=== PATIENT | female | born 1985 | race Caucasian/White ===

== ENCOUNTER 2019-03-29 11:05 | Emergency (ER) | payer BC ==
[2019-03-29 11:14] VITALS: RESP 18; TEMP 98.7
[2019-03-29] MEDS ORDERED: SODIUM CHLORIDE 0.9% 2,000 ML IV STA (12:05)
[2019-03-29 12:41] LABS: Basophils # (A) 0.2 k/uL (0-0.2); Basophils % (A) 2 %; Eosinophils # (A) 0.2 k/uL (0-0.7); Eosinophils % (A) 2 %; HCT 38.3 % (34.0-46.0); HGB 12.3 gm/dL (11.4-16.0); Lymphocytes # (A) 2.1 k/uL (1.0-4.8); Lymphocytes % (A) 19 %; MCH 29.2 pg (25.0-35.0); MCHC 32.2 g/dL (31.0-37.0); MCV 90.7 fL (80.0-100.0); Mean Platelet Volume 7.1; Monocytes # (A) 0.7 k/uL (0-1.0); Monocytes % (A) 6 %; Neutrophils # (A) 7.6 k/uL (1.3-7.7); Neutrophils % (A) 69 %; Platelet Count 330 k/uL (150-450); RBC 4.22 m/uL (3.80-5.40); RDW 12.5 % (11.5-15.5)
[2019-03-29 13:00] LABS: ALT 41 U/L (9-52); AST 36 U/L (14-36); African American GFR (CKD) >90 (>60 ml/min/1.73 sqM); Albumin 3.8 g/dL (3.5-5.0); Alkaline Phosphatase 42 U/L (38-126); Amylase 79 U/L (30-110); Anion Gap 9 mmol/L; Blood Urea Nitrogen 14 mg/dL (7-17); Carbon Dioxide 26 mmol/L (22-30); Chloride 103 mmol/L (98-107); Glucose 108 mg/dL (74-99); Potassium 4.6 mmol/L (3.5-5.1); Sodium 138 mmol/L (137-145); Total Bilirubin 0.3 mg/dL (0.2-1.3); Total Protein 6.7 g/dL (6.3-8.2)
--- NOTE | 2019-03-29 13:20 | ED ---
Nausea/Vomiting/Diarrhea HPI - General Chief complaint: Nausea/Vomiting/Diarrhea Stated complaint: Dehydrated-8 weeks Time Seen by Provider: 03/29/19 11:57 Source: patient, RN notes reviewed Mode of arrival: ambulatory Limitations: no limitations - History of Present Illness Initial comments: 34-year-old female presents emergency Department with chief complaint of nausea vomiting dehydration. Patient states she is [address] Salmon. Patient states that she suffered with increasing nausea vomiting morning sickness. Patient has tried taking [id number]-[id number] as directed including B6, Unisom, peppermint, lemon. Patient states that they gave her prescription for Zofran though she did not try yet. Patient states that she started some cramping today in which she contacted the office and recommended her come emergency from for IV hydration. Patient denies any vaginal bleeding or vaginal discharge. She has had an ultrasound which showed intrauterine . Patient has no complaints of dysuria hematuria denies any flank pain denies any diarrhea constipation. - Related Data Home Medications Medication Instructions Recorded Confirmed Pnv,Calcium 72/Iron/Folic Acid 1 tab PO HS 03/29/19 03/29/19 [ Plus Tablet] Allergies Allergy/AdvReac Type Severity Reaction Status Date / Time Penicillins Allergy Rash/Hives Verified 03/29/19 12:17 Review of Systems ROS Statement: Those systems with pertinent positive or pertinent negative responses have been documented in the HPI. ROS Other: All systems not noted in ROS Statement are negative. Past Medical History Past Medical History: No Reported History History of Any Multi-Drug Resistant Organisms: None Reported Past Surgical History: No Surgical Hx Reported Past Psychological History: No Psychological Hx Reported Smoking Status: Never smoker Past Alcohol Use History: None Reported Past Drug Use History: None Reported General Exam Limitations: no limitations General appearance: alert, in no apparent distress Head exam: Present: atraumatic, normocephalic, normal inspection Eye exam: Present: normal appearance, PERRL, EOMI. Absent: scleral icterus, conjunctival injection, periorbital swelling ENT exam: Present: mucous membranes dry, mucous membranes moist Neck exam: Present: normal inspection, full ROM. Absent: tenderness, meningismus, lymphadenopathy Respiratory exam: Present: normal lung sounds bilaterally. Absent: respiratory distress, wheezes, rales, rhonchi, stridor Cardiovascular Exam: Present: regular rate, normal rhythm, normal heart sounds. Absent: systolic murmur, diastolic murmur, rubs, gallop, clicks GI/Abdominal exam: Present: soft, normal bowel sounds. Absent: distended, tenderness, guarding, rebound, rigid Neurological exam: Present: alert, oriented X3 Skin exam: Present: warm, dry, intact, normal color. Absent: rash Course Vital Signs 03/29/19 11:11 Temperature 98.7 F Pulse Rate 91 Respiratory 18 Rate Blood Pressure 120/77 O2 Sat by Pulse 100 Oximetry - Reevaluation(s) Reevaluation #1: 03/29/19 13:55 Patient reevaluated and updated on results Medical Decision Making - Medical Decision Making 34 year old female presented for nausea vomiting . Patient was hydrated 2 L of fluid labs and urinalysis were obtained. Patient states that she feels improved after fluids and she does not require any antiemetics at this time. Patient advised to continue medications as directed by RESEARCH BIOLOGIST and return for any worsening symptoms. - Lab Data Result diagrams: 03/29/19 12:16 03/29/19 12:16 Lab Results 03/29/19 03/29/19 03/29/19 Range/Units 12:16 12:16 12:50 WBC 11.0 H (3.8-10.6) k/uL RBC 4.22 (3.80-5.40) m/uL Hgb 12.3 (11.4-16.0) gm/dL Hct 38.3 (34.0-46.0) % MCV 90.7 (80.0-100.0) fL MCH 29.2 (25.0-35.0) pg MCHC 32.2 (31.0-37.0) g/dL RDW 12.5 (11.5-15.5) % Plt Count 330 (150-450) k/uL Neutrophils % 69 % Lymphocytes % 19 % Monocytes % 6 % Eosinophils % 2 % Basophils % 2 % Neutrophils # 7.6 (1.3-7.7) k/uL Lymphocytes # 2.1 (1.0-4.8) k/uL Monocytes # 0.7 (0-1.0) k/uL Eosinophils # 0.2 (0-0.7) k/uL Basophils # 0.2 (0-0.2) k/uL Sodium 138 (137-145) mmol/L Potassium 4.6 (3.5-5.1) mmol/L Chloride 103 (98-107) mmol/L Carbon Dioxide 26 (22-30) mmol/L Anion Gap 9 mmol/L BUN 14 (7-17) mg/dL Creatinine 0.58 (0.52-1.04) mg/dL Est GFR (CKD-EPI)AfAm >90 (>60 ml/min/1.73 sqM) Est GFR (CKD-EPI)NonAf >90 (>60 ml/min/1.73 sqM) Glucose 108 H (74-99) mg/dL Calcium 9.0 (8.4-10.2) mg/dL Total Bilirubin 0.3 (0.2-1.3) mg/dL AST 36 (14-36) U/L ALT 41 (9-52) U/L Alkaline Phosphatase 42 (38-126) U/L Total Protein 6.7 (6.3-8.2) g/dL Albumin 3.8 (3.5-5.0) g/dL Amylase 79 (30-110) U/L Lipase 150 (23-300) U/L Urine Color Colorless Urine Appearance Clear (Clear) Urine pH 6.5 (5.0-8.0) Ur Specific [place] 1.004 (1.001-1.035) Urine Protein Negative (Negative) Urine Glucose (UA) Negative (Negative) Urine Ketones Negative (Negative) Urine Blood Negative (Negative) Urine Nitrite Negative (Negative) Urine Bilirubin Negative (Negative) Urine Urobilinogen <2.0 (<2.0) mg/dL Ur Leukocyte Esterase Moderate H (Negative) Urine WBC 2 (0-5) /hpf Ur Squamous Epith Cells 2 (0-4) /hpf Urine Bacteria Occasional H (None) /hpf Urine Mucus Rare H (None) /hpf Disposition Clinical Impression: Nausea/vomiting in Disposition: HOME SELF-CARE Condition: Stable Instructions (If sedation given, give patient instructions): Nausea and Vomiting in (ED) Additional Instructions: Please return to the Emergency Department if symptoms worsen or any other concerns. Is patient prescribed a controlled substance at d/c from ED?: No Referrals: Corin Salmon MD [STAFF PHYSICIAN] - 1-2 days Time of Disposition: 13:56
[2019-03-29 13:22] LABS: Appearance,Urine Clear (Clear); Bacteria,Urine Occasional /hpf; Bilirubin,Urine Negative (Negative); Blood,Urine Negative (Negative); Color,Urine Colorless; Glucose,Urine (UA) Negative (Negative); Ketones,Urine Negative (Negative); Leukocyte Esterase,Urine Moderate (Negative); Mucus,Urine Rare /hpf; Nitrite,Urine Negative (Negative); PH, Urine 6.5 (5.0-8.0); Protein,Urine Negative (Negative); Specific Gravity,Urine 1.004 (1.001-1.035); Squamous Epithelial Cell,Urine 2 /hpf (0-4); Urobilinogen,Urine <2.0 mg/dL (<2.0)
[2019-03-29 14:26] VITALS: BP 112/70; PULSE 72
== END 2019-03-29 14:26 | disposition home or self-care (01) ==
LOC: EC 11:05
DX: O21.9 Vomiting of pregnancy, unspecified (principal); Z3A.08 8 weeks gestation of pregnancy; Z88.0 Allergy status to penicillin; Z79.899 Other long term (current) drug therapy
CPT/HCPCS: 36415; 80053; 81001; 82150; 83690; 84702; 85025; 96360; 99283

== ENCOUNTER → 2019-04-19 | Outpatient (CLI) | payer BC ==
--- NOTE | 2019-04-19 18:08 | US ---
EXAMINATION TYPE: US thyroid st tissue head/neck DATE OF EXAM: 04/19/2019 COMPARISON: NONE CLINICAL HISTORY: E04.9 Thyroid Nodule. Thyroid nodules. GLAND SIZE: Right Lobe: 5.2 x 1.2 x 2.0 cm Overall Parenchyma: homogenous Left Lobe: 4.7 x 1.4 x 1.8 cm Overall Parenchyma: homogeneous Isthmus Thickness: .3 cm NODULES RIGHT: # of nodules measured on right: 0 LEFT: # of nodules measured on left: 0 ISTHMUS: # of nodules measured in the isthmus: 0 Bilateral neck scanned, no evidence of lymphadenopathy. Vascularity of the thyroid increased. IMPRESSION: Thyromegaly with no discrete thyroid nodule. Correlate for thyroiditis.
== END | disposition home or self-care (01) ==
LOC: RADUSMAIN 15:50
PROVIDERS: ATTEND Obstetrics & Gynecology
DX: E04.9 Nontoxic goiter, unspecified (principal)
CPT/HCPCS: 76536

== ENCOUNTER 2019-06-01 11:46 | Emergency (ER) | payer BC ==
[2019-06-01 11:49] VITALS: RESP 18; TEMP 98
[2019-06-01] MEDS ORDERED: SODIUM CHLORIDE 0.9% 1,000 ML IV STA (11:56)
[2019-06-01 12:11] LABS: Glucose,Whole Blood 55 mg/dL (75-99)
--- NOTE | 2019-06-01 12:14 | ED ---
General Adult HPI - General Chief complaint: Syncope Stated complaint: Syncope Time Seen by Provider: 06/01/19 11:56 Source: patient, EMS Mode of arrival: EMS Limitations: no limitations - History of Present Illness Initial comments: Dictation was produced using [email or web address] dictation software. please excuse any grammatical, word or spelling errors. Chief Complaint: 34-year-old female presents with presyncope. History of Present Illness: An is a 34-year-old female presents with presyncope. She was at target when she began feeling faint. Patient was slowly let down to the ground. Emesis, patient is brought to the emergency department. Patient is currently 17 weeks . Her NODULIZER is Dr. Turner. Patient had her initial ultrasound scan. She has had no issues with the this for. Patient stated vitamins. Since coming to the emergency department she's been feeling okay. Prior to the time she denies any palpitations. She did report feeling nauseous prior to onset of her symptoms. She reports having had oatmeal this morning. She reports that during this she's had severe nausea. Patient has any vaginal bleeding. The ROS documented in this emergency department record has been reviewed and confirmed by me. Those systems with pertinent positive or negative responses have been documented in the HPI. All other systems are other negative and/or noncontributory. PHYSICAL EXAM: General Impression: Alert and oriented x3, not in acute distress HEENT: Normocephalic atraumatic, extra-ocular movements intact, pupils equal and reactive to light bilaterally, mucous membranes moist. Cardiovascular: Heart regular rate and rhythm, S1&S2 audible, no murmurs, rubs or gallops Chest: Lungs clear to auscultation bilaterally, no rhonchi, no wheeze, no rales Abdomen: Bowel sounds present, abdomen soft, non-tender, non-distended, no organomegaly, appropriate abdominal exam given stated gestational age Musculoskeletal: Pulses present and equal in all extremities, no peripheral edema Motor: no focal deficits noted Neurological: CN II-XII grossly intact, no focal motor or sensory deficits noted Skin: Intact with no visualized rashes Psych: Normal affect and mood ED course: 34-year-old female presents with presyncope. Signs upon arrival are within acceptable limits. Blood glucose measures a 55. [facility]ony care bedside ultrasound was performed showing heart rate of 176. Laboratory evaluation obtained. CBC, metabolic panel is obtained metabolic panel shows glucose of 72. Patient was given oral glucose with improvement of blood sugars to the 110s. Patient was reevaluated with improvement of symptoms. His cast with patient that her symptoms are likely secondary to hypoglycemia. Patient is told to follow-up with her NODULIZER. She is told to consider hypoglycemia if she has recurrence of the symptoms. Patient feels well. She'll be discharged. Return premises discussed. EKG interpretation: Ventricular rate 73, normal sinus rhythm, SC interval 134, QRS 86, QTC 423. No SC prolongation, no QTC prolongation, no ST or T-wave changes noted. Overall, this EKG is unremarkable - Related Data Home Medications Medication Instructions Recorded Confirmed Pnv,Calcium 72/Iron/Folic Acid 1 tab PO HS 03/29/19 06/01/19 [ Plus Tablet] Allergies Allergy/AdvReac Type Severity Reaction Status Date / Time Penicillins Allergy Rash/Hives Verified 06/01/19 12:22 Review of Systems ROS Statement: Those systems with pertinent positive or pertinent negative responses have been documented in the HPI. ROS Other: All systems not noted in ROS Statement are negative. Past Medical History Past Medical History: No Reported History History of Any Multi-Drug Resistant Organisms: None Reported Past Surgical History: No Surgical Hx Reported Past Psychological History: No Psychological Hx Reported Smoking Status: Never smoker Past Alcohol Use History: None Reported Past Drug Use History: None Reported General Exam Limitations: no limitations Course Vital Signs 06/01/19 06/01/19 11:47 12:22 Temperature 98 F Pulse Rate 72 83 Respiratory 18 18 Rate Blood Pressure 116/74 114/65 O2 Sat by Pulse 100 99 Oximetry Medical Decision Making - Lab Data Result diagrams: 06/01/19 12:18 06/01/19 12:18 Lab Results 06/01/19 06/01/19 06/01/19 Range/Units 11:59 12:18 12:18 WBC 10.5 (3.8-10.6) k/uL RBC 3.77 L (3.80-5.40) m/uL Hgb 11.8 (11.4-16.0) gm/dL Hct 34.3 (34.0-46.0) % MCV 90.9 (80.0-100.0) fL MCH 31.2 (25.0-35.0) pg MCHC 34.3 (31.0-37.0) g/dL RDW 12.5 (11.5-15.5) % Plt Count 306 (150-450) k/uL Neutrophils % 73 % Lymphocytes % 19 % Monocytes % 5 % Eosinophils % 2 % Basophils % 0 % Neutrophils # 7.6 (1.3-7.7) k/uL Lymphocytes # 2.0 (1.0-4.8) k/uL Monocytes # 0.5 (0-1.0) k/uL Eosinophils # 0.2 (0-0.7) k/uL Basophils # 0.0 (0-0.2) k/uL Sodium 134 L (137-145) mmol/L Potassium 4.5 (3.5-5.1) mmol/L Chloride 106 (98-107) mmol/L Carbon Dioxide 22 (22-30) mmol/L Anion Gap 6 mmol/L BUN 10 (7-17) mg/dL Creatinine 0.59 (0.52-1.04) mg/dL Est GFR (CKD-EPI)AfAm >90 (>60 ml/min/1.73 sqM) Est GFR (CKD-EPI)NonAf >90 (>60 ml/min/1.73 sqM) Glucose 72 L (74-99) mg/dL POC Glucose (mg/dL) 55 L (75-99) mg/dL POC Glu Beaming Inspector Elizabeth Nguyen Calcium 8.8 (8.4-10.2) mg/dL Magnesium 1.9 (1.6-2.3) mg/dL 06/01/19 Range/Units 13:02 WBC (3.8-10.6) k/uL RBC (3.80-5.40) m/uL Hgb (11.4-16.0) gm/dL Hct (34.0-46.0) % MCV (80.0-100.0) fL MCH (25.0-35.0) pg MCHC (31.0-37.0) g/dL RDW (11.5-15.5) % Plt Count (150-450) k/uL Neutrophils % % Lymphocytes % % Monocytes % % Eosinophils % % Basophils % % Neutrophils # (1.3-7.7) k/uL Lymphocytes # (1.0-4.8) k/uL Monocytes # (0-1.0) k/uL Eosinophils # (0-0.7) k/uL Basophils # (0-0.2) k/uL Sodium (137-145) mmol/L Potassium (3.5-5.1) mmol/L Chloride (98-107) mmol/L Carbon Dioxide (22-30) mmol/L Anion Gap mmol/L BUN (7-17) mg/dL Creatinine (0.52-1.04) mg/dL Est GFR (CKD-EPI)AfAm (>60 ml/min/1.73 sqM) Est GFR (CKD-EPI)NonAf (>60 ml/min/1.73 sqM) Glucose (74-99) mg/dL POC Glucose (mg/dL) 110 H (75-99) mg/dL POC Glu Beaming Inspector ID Martha Vasquez Calcium (8.4-10.2) mg/dL Magnesium (1.6-2.3) mg/dL Disposition Clinical Impression: Hypoglycemia Disposition: HOME SELF-CARE Is patient prescribed a controlled substance at d/c from ED?: No Referrals: Corin Salmon MD [STAFF PHYSICIAN] - 1-2 days Time of Disposition: 13:21
[2019-06-01 12:23] VITALS: BP 114/65; PULSE 83
[2019-06-01 12:26] LABS: Basophils % (A) 0 %; Eosinophils # (A) 0.2 k/uL (0-0.7); Eosinophils % (A) 2 %; HCT 34.3 % (34.0-46.0); HGB 11.8 gm/dL (11.4-16.0); Lymphocytes % (A) 19 %; MCH 31.2 pg (25.0-35.0); MCHC 34.3 g/dL (31.0-37.0); MCV 90.9 fL (80.0-100.0); Mean Platelet Volume 5.8; Monocytes # (A) 0.5 k/uL (0-1.0); Monocytes % (A) 5 %; Neutrophils # (A) 7.6 k/uL (1.3-7.7); Neutrophils % (A) 73 %; Platelet Count 306 k/uL (150-450); RBC 3.77 m/uL (3.80-5.40); RDW 12.5 % (11.5-15.5); WBC 10.5 k/uL (3.8-10.6)
[2019-06-01 12:40] LABS: African American GFR (CKD) >90 (>60 ml/min/1.73 sqM); Anion Gap 6 mmol/L; Blood Urea Nitrogen 10 mg/dL (7-17); Calcium 8.8 mg/dL (8.4-10.2); Carbon Dioxide 22 mmol/L (22-30); Chloride 106 mmol/L (98-107); Glucose 72 mg/dL (74-99); Magnesium 1.9 mg/dL (1.6-2.3); Non-African American GFR(CKD) >90 (>60 ml/min/1.73 sqM); Potassium 4.5 mmol/L (3.5-5.1); Sodium 134 mmol/L (137-145)
[2019-06-01 13:15] LABS: Glucose,Whole Blood 110 mg/dL (75-99)
== END 2019-06-01 13:32 | disposition home or self-care (01) ==
LOC: EC 11:46
DX: O99.282 Endocrine, nutritional and metabolic diseases complicating pregnancy, second trimester (principal); E16.2 Hypoglycemia, unspecified; Z3A.17 17 weeks gestation of pregnancy; Z88.0 Allergy status to penicillin
CPT/HCPCS: 36415; 80048; 83735; 85025; 93005; 96360; 99284

== ENCOUNTER 2019-07-05 13:26 | Outpatient (CLI) | payer BC ==
[2019-07-05 14:04] VITALS: BP 128/75; PULSE 91; RESP 18; TEMP 97.3
--- NOTE | 2019-07-28 10:02 | P.MSEPDOC ---
Presenting Problems - Arrival Data Date of Arrival on Unit: 07/05/19 Time of Arrival on Unit: 13:30 Mode of Transport: Ambulatory - Complaint OB-Reason for Admission/Chief Complaint: Pain Comment: cramping, vaginal pressure- more intense when standing Medical History - Information : 1 Para: 0 Term: 0 : 0 Abortions: Spontaneous or Elective: 0 Number of Living Children: 0 - Gestational Age Gestational Age by MABEL (wks/days): 22 Weeks and 4 Days Review of Systems - Review of Systems Constitutional: No problems Breast: No problems ENT: No problems Cardiovascular: No problems Respiratory: No problems Gastrointestinal: No problems Genitourinary: No problems Musculoskeletal: No problems Neurological: No problems Skin: No problems Vital Signs - Temperature Temperature: 97.3 F Temperature Source: Temporal Artery Scan - Pulse Right Sitting Brachial Pulse Rate: 91 Pulse Assessment Method: Automatic Cuff - Respirations Respiratory Rate: 18 Oxygen Delivery Method: Room Air O2 Sat by Pulse Oximetry: 100 - Blood Pressure Right Arm Sitting Blood Pressure: 128/75 Blood Pressure Mean: 92 Blood Pressure Source: Automatic Cuff Medical Screen Scoring (Pre) - Cervical Exam Dilation: 0 cm = 0 - Uterine Contractions Frequency: N/A Duration: N/A Intensity: N/A - Maternal Vital Signs Maternal Temperature: N/A Maternal Blood Pressure: N/A Signs of Preeclampsia: N/A Maternal Respirations: N/A - Maternal Trauma Maternal Trauma: N/A - Assessment - Baby A Baseline FHR: 140 Heart Rate - NICHD Category: Category I (Normal) = 0 Position: N/A Station: N/A - Total Score - Baby A Total Score - Baby A: 0 - Total Score - Baby B Total Score - Baby B: 0 - Total Score - Baby C Total Score - Baby C: 0 - Level of Risk - Baby A Level of Risk - Baby A: Low (0-5) - Level of Risk - Baby B Level of Risk - Baby B: Low (0-5) - Level of Risk - Baby C Level of Risk - Baby C: Low (0-5) - Pain Assessment Pain Location and Character: Abdomen Pain Scale Used: Numeric (1 - 10) Pain Intensity: 1 Pain Management Goal: 0 Pain Description: Cramping Pain Radiation Location: none Pain Frequency: Occasional Pain Duration: 4 Pain Duration Units: Hours Pain Behavior: None Exhibited Effects of Pain: none Pain Aggravating Factors: Activity Physician Notification (Pre) - Physician Notified Physician Notified Date: 07/05/19 Physician Notified Time: 13:55 New Order Received: Yes - Notification Comment Comment: Dc home. cervix closed/thick/high. Suggested maternal support belt. Follow up with Dr Mars within one week. Disposition - Disposition OB Disposition: Discharge to home Discharge Date: 07/05/19 Discharge Time: 14:00 I agree with the RN Medical Screening Exam: Yes Risk & Benefit of care provided described in d/c instruction: Yes Diagnosis: 22 WEEKS GESTATION OF
== END 2019-07-05 14:00 | disposition home or self-care (01) ==
LOC: FBPOP 13:26
PROVIDERS: ATTEND Obstetrics & Gynecology
DX: O26.892 Other specified pregnancy related conditions, second trimester (principal); Z3A.22 22 weeks gestation of pregnancy
CPT/HCPCS: 99213

== ENCOUNTER 2019-11-03 13:38 | Inpatient (IN) | payer BC ==
[2019-11-03] MEDS: LACTATED RINGERS 1,000 ML IV SCH ×3 (14:26→21:57)
--- NOTE | 2019-11-03 15:32 | US ---
EXAMINATION TYPE: US OB limited DATE OF EXAM: 11/03/2019 COMPARISON: NONE CLINICAL HISTORY: non reassuring heart tones. EXAM PERFORMED: Transabdominal (TA) GESTATIONAL AGE / DATING Physician Established: (38 weeks/6 days) EDC: 11/04/19 No growth performed on today?s study per ordering physician SURVEY BONNIE: 5.75 cm Oligohydramnios. (Tech?if abnormal transabdominally?image transvaginally to substantiate abnormality.) HEART RATE: 143 bpm RHYTHM: Normal IMPRESSION: 1. Oligohydramnios. 2. BONNIE 5.75 cm. 3. Cardiac activity 143 bpm observed during the study.
[2019-11-03] MEDS ORDERED: BUTORPHANOL 1 MG/ML 1 ML VIAL IV PRN (15:40)
[2019-11-03] MEDS ORDERED: DINOPROSTONE 10 MG INSERT.ER VAGINAL ONE (15:40)
[2019-11-03] MEDS ORDERED: TERBUTALINE 1 MG/ML VIAL SQ PRN (15:42)
[2019-11-03] MEDS ORDERED: OXYTOCIN 10 UNIT/ML 1 ML VIAL IM PRN (15:42)
[2019-11-03] MEDS ORDERED: CARBOPROST TROMETHAMINE 250 MCG/ML 1 ML AMP IM PRN (15:42)
[2019-11-03] MEDS ORDERED: METHYLERGONOVINE 0.2 MG/ML 1 ML AMP IM PRN (15:42)
[2019-11-03] MEDS ORDERED: LIDOCAINE 0.5% (PF) 5 MG/ML (50 ML SDV) SQ PRN (15:42)
[2019-11-03 16:22] LABS: Basophils % (A) 0 %; Eosinophils # (A) 0.1 k/uL (0-0.7); Eosinophils % (A) 1 %; HCT 35.8 % (34.0-46.0); HGB 11.3 gm/dL (11.4-16.0); Lymphocytes # (A) 1.9 k/uL (1.0-4.8); Lymphocytes % (A) 18 %; MCH 29.1 pg (25.0-35.0); MCHC 31.7 g/dL (31.0-37.0); MCV 91.9 fL (80.0-100.0); Mean Platelet Volume 11.3; Monocytes # (A) 0.7 k/uL (0-1.0); Monocytes % (A) 7 %; Neutrophils # (A) 7.5 k/uL (1.3-7.7); Neutrophils % (A) 73 %; Platelet Count 257 k/uL (150-450); RBC 3.89 m/uL (3.80-5.40); RDW 15.2 % (11.5-15.5); WBC 10.3 k/uL (3.8-10.6)
--- NOTE | 2019-11-03 17:33 | P.HPOB ---
History of Present Illness H&P Date: 11/03/19 Chief Complaint: Possible labor This is a 34-year-old 1 para 0 woman with an estimated due date of 11/04/2019 based on LMP consistent with second trimester ultrasound. She presents to labor and delivery triage complaining of irregular contractions for several hours. She was not in active labor she had a nonreactive NST with minimal to absent variability noted. She had no repetitive decelerations. IV fluid hydration did improve the variability somewhat however bedside ultrasound revealed an BONNIE of only 5.3 cm. She was therefore admitted for cervical ripenin g prior to induction of labor for oligohydramnios at term. Her cervix is unfavorable dilated to 1.5 cm, 50% effaced, vertex in the -3 station. Her has been essentially unremarkable. She did have some syncopal episodes in the second trimester however these did resolve near term. Laboratory data: Group B strep negative, blood type O+, antibody screen negative, rubella immune, VDRL nonreactive, hepatitis B surface antigen negative, gonorrhea and clinic cultures negative, HIV negative, glucose tolerance testing within normal limits. Review of Systems All systems: negative Past Medical History Past Medical History: No Reported History History of Any Multi-Drug Resistant Organisms: None Reported Past Surgical History: No Surgical Hx Reported Smoking Status: Never smoker Medications and Allergies Home Medications Medication Instructions Recorded Confirmed Type Pnv,Calcium 72/Iron/Folic Acid 1 tab PO HS 03/29/19 11/03/19 History [ Plus Tablet] Allergies Allergy/AdvReac Type Severity Reaction Status Date / Time Penicillins Allergy Rash/Hives Verified 11/03/19 14:22 Exam Intake and Output 11/03/19 11/03/19 11/03/19 06:59 14:59 22:59 Other: Weight 75.296 kg This is a pleasant, comfortable appearing female who is visibly gravid. HEENT exam is unremarkable. Her breathing is unlabored and her heart is a regular rate and rhythm. The abdomen is gravid, soft and nontender with an estimated weight of approximately 7 pounds. On pelvic examination the cervix is 1.5 cm dilated, 50% effaced and the vertex is in the -3 station. Cervidil is placed in the posterior fourchette. heart tones are currently category 2 with occasional mild variable heart rate decelerations. No late appearing decelerations. Moderate variability. She is irregularly jose every 5-10 minutes. Results Result Diagrams: 11/03/19 14:26 Abnormal Lab Results - Last 24 Hours (Table) 11/03/19 Range/Units 14:26 Hgb 11.3 L (11.4-16.0) gm/dL Assessment and Plan (1) Term Current Visit: Yes Status: Acute Code(s): Z34.90 - ENCNTR FOR SUPRVSN OF NORMAL , UNSP, UNSP TRIMESTER SNOMED Code(s): 91343268 (2) Oligohydramnios Current Visit: Yes Status: Acute Code(s): O41.00X0 - OLIGOHYDRAMNIOS, UNSP TRIMESTER, NOT APPLICABLE OR UNSP SNOMED Code(s): 17671861 (3) AMA (advanced maternal age) primigravida 35+ Current Visit: Yes Status: Acute Code(s): O09.519 - SUPERVISION OF ELDERLY PRIMIGRAVIDA, UNSPECIFIED TRIMESTER SNOMED Code(s): 52469259 Plan: This is a 34-year-old 1 para 0 woman admitted at 39-6/7 weeks' gestation for cervical ripening and induction of labor secondary to oligohydramnios. She and her are counseled extensively regarding the situation. Specifically she is counseled that with contractions if there is evidence of intolerance of labor we Would discontinue the attempt at induction and proceed to primary low transverse section. heart tones are currently overall reassuring although she does have occasional mild variable heart rate decelerations not related to contractions. Cervidil is placed and if all goes well Pitocin induction of labor with artificial rupture of membranes in the morning or with onset of spontaneous labor. All questions were answered and the patient and her agreed with the plan. She is group B strep negative and Rh+.
[2019-11-03] MEDS ORDERED: fentaNYL (PF) 50 MCG/ML 5 ML AMP ONE (21:35)
[2019-11-03] MEDS ORDERED: ROPIVACAINE 5MG/ML 20ML VIAL ONE (21:35)
[2019-11-03] MEDS ORDERED: SODIUM CHLORIDE 0.9% 100 ML BAG ONE (21:35)
[2019-11-03] MEDS ORDERED: ROPIVACAINE 100 MG, fentaNYL (PF) 200 MCG in SODIUM CHLORIDE 0.9% 76 ML EPIDURAL ONE (21:58)
[2019-11-03] MEDS ORDERED: CITRIC ACID-SODIUM CITRATE 15 ML CUP PO ONE (23:18)
[2019-11-03] MEDS ORDERED: ONDANSETRON 4 MG/2 ML VIAL ONE (23:27)
[2019-11-03] MEDS ORDERED: PROPOFOL 10 MG/ML 20 ML VIAL IV ONE (23:27)
[2019-11-03] MEDS ORDERED: KETOROLAC 30 MG/ML 1 ML VIAL ONE (23:27)
[2019-11-03] MEDS ORDERED: NALBUPHINE 10 MG/ML (1 ML AMP) ONE (23:27)
[2019-11-03] MEDS ORDERED: OXYTOCIN 10 UNIT/ML 1 ML VIAL ONE (23:27)
[2019-11-03] MEDS ORDERED: SUCCINYLCHOLINE CHLORIDE 100 MG/5 ML SYR IV ONE (23:27)
[2019-11-03] MEDS ORDERED: CELLULOSE,OXIDIZED 1 EACH EACH MISCELLANE ONE (23:50)
[2019-11-04] MEDS ORDERED: diphenhydrAMINE 50 MG CAP PO PRN (00:26)
[2019-11-04] MEDS ORDERED: SIMETHICONE 80 MG CHEWABLE PO PRN (00:26)
[2019-11-04] MEDS ORDERED: ONDANSETRON 4 MG/2 ML VIAL IVP PRN (00:26)
[2019-11-04] MEDS ORDERED: NALOXONE 0.4 MG/ML 1 ML VIAL IV PRN (00:26)
[2019-11-04] MEDS ORDERED: HYDROcodone/APAP 5-325MG 1 EACH TAB PO PRN (00:26)
[2019-11-04] MEDS ORDERED: ZOLPIDEM 5 MG TAB PO PRN (00:26)
[2019-11-04] MEDS ORDERED: METOCLOPRAMIDE 5 MG/ML 2 ML VIAL IVP PRN (00:26)
[2019-11-04] MEDS ORDERED: diphenhydrAMINE 25 MG CAP PO PRN (00:26)
[2019-11-04] MEDS ORDERED: diphenhydrAMINE 50 MG/ML 1 ML VIAL IVP PRN ×2 (00:26)
--- NOTE | 2019-11-04 00:26 | P.OP ---
Date of Procedure: 11/04/19 Preoperative Diagnosis: Intrauterine at 39-6/7 weeks' gestation Oligohydramnios Meconium-stained fluid Nonreassuring heart tones in the second stage Postoperative Diagnosis: Same plus nuchal cord 2 Procedure(s) Performed: Primary low transverse section Anesthesia: IRINA Surgeon: Corin Salmon [employer] Worker #1: Juana Smith Estimated Blood Loss (ml): 600 IV fluids (ml): 900 Urine output (ml): 200 Pathology: other (Placenta) Condition: stable Disposition: floor Indications for Procedure: This is a 34-year-old 1 para 0 woman who presented at 39-6/7 weeks' gestation with possible early labor. She had minimal cervical dilation however evaluation in labor and delivery triage she had nonreactive NST. She was given IV fluid rehydration which did make the tracing reactive however bedside ultrasound revealed of amniotic fluid index of 5 cm. Her cervix was 1 cm dilated and she was admitted for cervical ripening secondary to oligohydramnios at term. This Cervidil was placed at approximately 5 PM. By approximately 8 PM she was very uncomfortable and was regularly jose. Her cervix was 2+ centimeters dilated. The Cervidil was removed. She progressed to 4 cm dilated at which time artificial rupture of membranes was undertaken and thick meconium- stained fluid was noted. She had category 2 heart tones throughout this time with periods of minimal variability and occasional variable heart rate decelerations. She did progress rapidly through the first stage of labor and at 8 cm dilated received an epidural anesthetic. She reached complete cervical dilation however with maternal effort had deep variable heart rate decelerations into the 60 bpm. The station was quite high and assessment was the second stage of labor would be longer then the intolerance. The patient and her were counseled regarding concerns for meconium-stained fluid, heart rate decelerations remote from delivery and recommendation to proceed to section was made. Consent was obtained. Operative Findings: Female in the occiput posterior position with nuchal cord 2. Thick meconium-stained fluid. Intact, three-vessel cord placenta. Apgars of 6 at 1 minute and 8 at 5 minutes weight 7 lbs. 2 oz., 3240 g. Description of Procedure: The patient's epidural was bolused and she was transported to the operating room. In the operating room heart tones were initially dopplered at 120 bpm however she had a deceleration to the 80 bpm. Her anesthetic and un fortunately was not adequate therefore general anesthetic was administered after she was position prepped and draped. When she was intubated a low transverse skin incision was made and carried down sharply to the underlying fascia. The fascia was incised in the midline and extended bilaterally with the Potter scissors. The rectus muscles were bluntly in the midline and the peritoneum was entered bluntly. Bladder blade was placed and a low transverse uterine incision was made. This was extended bilaterally bluntly. Copious thick meconium-stained fluid was noted. The 's vertex was delivered from the incision from the occiput posterior position and a nuchal cord 2 was reduced. Nose and mouth were bulb suctioned and the rest the infant was delivered from the field. The cord was clamped and cut and the was taken rapidly to the warmer. Apgars were 6 at 1 minute and 8 at 5 minutes. An intact, three-vessel cord placenta was removed from the uterus and the uterus was exteriorized. The uterus was cleared of all clot and debris. Of note there were some omental adhesions to the fundal area of the uterus. The uterine incision did extend to the left and was delineated with Smith clamps. The uterine incision was closed in a running locked fashion with 0 Vicryl suture followed by second imbricating layer of the same. Additional [id number] suture was placed in the midline for hemostasis. Urine was clear at this time. The Bovie electrocautery was utilized to obtain hemostasis in areas of the anterior fundus of the uterus where adhesions were disrupted. The uterus was then returned to the abdomen. Gutters were cleared of all clot and debris and the uterine incision was reinspected and noted to be hemostatic. Bladder appears intact and urine is clear. The fascial edges, rectus muscles and peritoneal edges were inspected and noted to be hemostatic. The peritoneal peritoneum is reapproximated in the midline with 0 Vicryl suture. The fascia was then closed in a running fashion with 0 Vicryl suture on in halves. The subcu testicular tissue was copiously suction irrigated and Bovie electrocautery was utilized were necessary for hemostasis. The subcu was reapproximated with 3-0 chromic suture and the skin was closed with 4-0 Vicryl suture. All counts reported to me as correct by the operating room staff. The patient was awoken from anesthetic without incident and was transported to recovery area in stable condition.
[2019-11-04] MEDS ORDERED: OXYTOCIN 20 UNITS/1000 ML NS 1,000 ML IV SCH (00:30)
[2019-11-04] MEDS: KETOROLAC 30 MG/ML 1 ML VIAL IVP PRN ×3 (09:26→22:20)
--- NOTE | 2019-11-04 10:18 | P.PNOBGPC ---
Subjective - Subjective Principal diagnosis: Postop day 1/2 Interval history: Findings of labor and section reviewed with the patient and her in detail and all questions are answered. She is complaining of some mild to moderate pain, improved with Toradol at this time. She is recently had the catheter removed and has not yet been up to void. She denies nausea or vomiting and did tolerate some breakfast. [place]: doing well, nursing well Objective - Vital Signs Latest vital signs: Vital Signs Temp Pulse Resp BP Pulse Ox 11/04/19 02:31 90 16 130/77 11/04/19 02:01 98.1 F 85 16 131/70 95 11/04/19 01:31 98 16 142/69 11/04/19 01:16 89 16 133/67 11/04/19 01:01 100 16 137/67 95 11/04/19 00:46 97 16 142/92 97 11/04/19 00:31 98.1 F 117 H 16 134/88 98 11/03/19 17:25 98.1 F 102 H 16 125/81 11/03/19 13:50 98.1 F 102 H 16 125/81 Intake and Output 11/03/19 11/04/19 11/04/19 22:59 06:59 14:59 Output Total 1200 Balance -1200 Output: Urine 1200 Other: Voiding Method Indwelling Catheter # Voids 1 Weight 75.296 kg - Exam Extremities: Present: normal, edema. Absent: tenderness Abdomen: Present: normal appearance, soft, tenderness Incision: Present: normal, dry, intact, dressed Uterus: Present: normal, firm - Labs Labs: Abnormal Lab Results - Last 24 Hours (Table) 11/03/19 Range/Units 14:26 Hgb 11.3 L (11.4-16.0) gm/dL Assessment and Plan (1) Term Current Visit: Yes Status: Acute Code(s): Z34.90 - ENCNTR FOR SUPRVSN OF NORMAL , UNSP, UNSP TRIMESTER SNOMED Code(s): 30650433 (2) Oligohydramnios Current Visit: Yes Status: Acute Code(s): O41.00X0 - OLIGOHYDRAMNIOS, UNSP TRIMESTER, NOT APPLICABLE OR UNSP SNOMED Code(s): 80430107 (3) AMA (advanced maternal age) primigravida 35+ Current Visit: Yes Status: Acute Code(s): O09.519 - SUPERVISION OF ELDERLY PRIMIGRAVIDA, UNSPECIFIED TRIMESTER SNOMED Code(s): 11945666 (4) Meconium in amniotic fluid Current Visit: Yes Status: Acute Code(s): P96.83 - MECONIUM STAINING SNOMED Code(s): 4760848 (5) Nuchal cord Current Visit: Yes Status: Acute Code(s): O69.81X0 - LABOR AND DEL COMP BY CORD AROUND NECK, W/O COMPRSN, UNSP SNOMED Code(s): 413768362 (6) Non-reassuring heart rate or rhythm affecting management of fetus Current Visit: Yes Status: Acute Code(s): PIG2002 - SNOMED Code(s): 088284889 (7) S/P section Current Visit: Yes Status: Acute Code(s): Z98.891 - HISTORY OF UTERINE SCAR FROM PREVIOUS SURGERY SNOMED Code(s): 614282068 Plan: Postop day 1/2 status post primary low transverse section for nonreassuring heart tones, meconium in the second stage of labor. Operative events reviewed in detail. Patient is recovering well in the immediate postop timeframe. Anticipated recovery course is reviewed. All questions are answered.
[2019-11-04] MEDS: SENNOSIDES-DOCUSATE SODIUM 1 EACH TAB PO SCH ×2 (19:58→20:54)
[2019-11-04] MEDS: LACTATED RINGERS 1,000 ML IV SCH ×2 (20:54→20:55)
[2019-11-04] MEDS: OXYTOCIN 30 UNITS/500 ML NS 30 UNIT in SALINE 1 500ML.BAG IV SCH (20:55)
[2019-11-05] MEDS: ACETAMINOPHEN TAB 325 MG TAB PO PRN ×3 (01:15→19:30)
[2019-11-05] MEDS: IBUPROFEN 600 MG TAB PO PRN ×2 (04:06→13:28)
[2019-11-05 05:49] LABS: Basophils % (A) 0 %; Eosinophils # (A) 0.1 k/uL (0-0.7); Eosinophils % (A) 0 %; HCT 31.7 % (34.0-46.0); HGB 10.3 gm/dL (11.4-16.0); Lymphocytes # (A) 2.4 k/uL (1.0-4.8); Lymphocytes % (A) 14 %; MCH 30.2 pg (25.0-35.0); MCHC 32.4 g/dL (31.0-37.0); MCV 93.4 fL (80.0-100.0); Mean Platelet Volume 9.1; Monocytes # (A) 0.6 k/uL (0-1.0); Monocytes % (A) 4 %; Neutrophils # (A) 13.7 k/uL (1.3-7.7); Neutrophils % (A) 81 %; Platelet Count 229 k/uL (150-450); RDW 15.5 % (11.5-15.5)
[2019-11-05] MEDS: SENNOSIDES-DOCUSATE SODIUM 1 EACH TAB PO SCH ×2 (08:21→21:27)
--- NOTE | 2019-11-05 10:50 | P.DS ---
Providers Date of admission: 11/03/19 15:42 Expected date of discharge: 11/05/19 Attending physician: Corin Salmon Primary care physician: Stated None - Discharge Diagnosis(es) (1) Term Current Visit: Yes Status: Acute (2) Oligohydramnios Current Visit: Yes Status: Acute (3) AMA (advanced maternal age) primigravida 35+ Current Visit: Yes Status: Acute (4) Meconium in amniotic fluid Current Visit: Yes Status: Acute (5) Nuchal cord Current Visit: Yes Status: Acute (6) Non-reassuring heart rate or rhythm affecting management of fetus Current Visit: Yes Status: Acute (7) S/P section Current Visit: Yes Status: Acute Hospital Course: This is a 34-year-old 1 now para 1 woman who was admitted at 39-6/7 wee ks' gestation for induction of labor secondary to findings of oligohydramnios. She did originally presented to labor and delivery triage for evaluation of possible early labor. She had minimal cervical change during triage observation she was noted to have nonreactive NST. This did improve with fluid rehydration however bedside ultrasound revealed amniotic fluid index of 5 cm. Secondary to concerns for well-being at term patient was admitted. Her cervix was unfavorable therefore Cervidil was placed. Approximately 2-3 hours after placement of the Cervidil she was in active labor. The Cervidil was removed and she was 4 cm dilated. Artificial rupture of membranes was undertaken and thick meconium- stained fluid was noted. Her labor did then rapidly progressed spontaneously and she received an epidural anesthetic. She did progress to complete cervical dilation however with maternal effort in the second stage of labor she had deep heart rate decelerations. The infant's vertex was high indicating possible prolonged second stage of labor that the was unlikely to tolerate., patient and her were counseled on the regarding section. She was taken to the operating room. Unfortunately her epidural anesthetic was in adequate therefore general anesthetic was administered. Findings at the time of surgery were significant for a female infant in the occiput posterior position with a tight nuchal cord 2 and thick meconium- stained fluid. Apgars were 6 at 1 minute and 8 at 5 minutes. Please see the operative report for details. The patient's postoperative course was unremarkable. By the morning of postoperative day #1 she was ambulating and voiding without difficulty, tolerating a general diet and her pain was well- controlled with oral pain medications. Her incision appeared well healing. By postoperative day #2 she continued to do well. Vital signs were stable, incision well healing, nursing well. She was therefore discharged home with routine instructions for postoperative care and follow-up. Patient Condition at Discharge: Good Plan - Discharge Summary New Discharge Prescriptions: No Action Pnv,Calcium 72/Iron/Folic Acid [ Plus Tablet] 1 tab PO HS Discharge Medication List Pnv,Calcium 72/Iron/Folic Acid [ Plus Tablet] 1 tab PO HS 03/29/19 [History] Follow up Appointment(s)/Referral(s): Corin Salmon MD [STAFF PHYSICIAN] - 2 Weeks Activity/Diet/Wound Care/Special Instructions: Follow-up in 2 weeks after surgery in the office. Call the office with any concerning signs or symptoms including fever greater than 101, severe abdominal pain, heavy vaginal bleeding, signs of wound infection, increased swelling or redness of the lower extremities, signs of depression. No driving for 2 weeks after surgery. No heavy lifting or vigorous activity until reevaluated in the office. No intercourse for 6 weeks after delivery. May use [id number] ibuprofen and or Tylenol Extra Strength as instructed for pain. Discharge Disposition: HOME SELF-CARE
[2019-11-06] MEDS: IBUPROFEN 600 MG TAB PO PRN (00:33)
[2019-11-06] MEDS: ACETAMINOPHEN TAB 325 MG TAB PO PRN (06:15)
[2019-11-06 07:58] VITALS: BP 125/77; PULSE 87; RESP 16; TEMP 98.7
[2019-11-06] MEDS: SENNOSIDES-DOCUSATE SODIUM 1 EACH TAB PO SCH (09:35)
== END 2019-11-06 09:41 | disposition home or self-care (01) | DRG 788 ==
LOC: FBPOP 13:38 → 4FBP 15:42
PROVIDERS: ADMIT Obstetrics & Gynecology; ATTEND Obstetrics & Gynecology
PROC: 3E033VJ Introduction of Other Hormone into Peripheral Vein, Percutaneous Approach (ICD-10-PCS; 2019-11-03)
PROC: 10907ZC Drainage of Amniotic Fluid, Therapeutic from Products of Conception, Via Natural or Artificial Opening (ICD-10-PCS; 2019-11-03)
PROC: 3E0P7VZ Introduction of Hormone into Female Reproductive, Via Natural or Artificial Opening (ICD-10-PCS; 2019-11-03)
PROC: 00HU33Z Insertion of Infusion Device into Spinal Canal, Percutaneous Approach (ICD-10-PCS; 2019-11-03)
PROC: 3E0R3BZ Introduction of Anesthetic Agent into Spinal Canal, Percutaneous Approach (ICD-10-PCS; 2019-11-03)
PROC: 10D00Z1 Extraction of Products of Conception, Low, Open Approach (ICD-10-PCS; principal; 2019-11-04)
DX: O41.03X0 Oligohydramnios, third trimester, not applicable or unspecified (principal); O69.1XX0 Labor and delivery complicated by cord around neck, with compression, not applicable or unspecified; O77.0 Labor and delivery complicated by meconium in amniotic fluid; O76 Abnormality in fetal heart rate and rhythm complicating labor and delivery; Z3A.39 39 weeks gestation of pregnancy; Z37.0 Single live birth; Z79.899 Other long term (current) drug therapy; Z88.0 Allergy status to penicillin
CPT/HCPCS: 59025; 76815; 85025; 86850; 86900; 86901; 88307; 99213

== ENCOUNTER 2021-03-03 17:18 | Emergency (ER) | payer BC ==
[2021-03-03 17:34] VITALS: RESP 18
[2021-03-03] MEDS ORDERED: SODIUM CHLORIDE 0.9% 1,000 ML IV STA (18:57)
[2021-03-03] MEDS ORDERED: ONDANSETRON 4 MG/2 ML VIAL IVP STA (18:57)
[2021-03-03 19:21] LABS: Basophils % (A) 0 %; Eosinophils # (A) 0.2 k/uL (0-0.7); Eosinophils % (A) 2 %; HGB 13.6 gm/dL (11.4-16.0); Lymphocytes # (A) 2.2 k/uL (1.0-4.8); Lymphocytes % (A) 22 %; MCV 94.1 fL (80.0-100.0); Mean Platelet Volume 8.1; Monocytes # (A) 0.5 k/uL (0-1.0); Monocytes % (A) 5 %; Neutrophils % (A) 70 %; Platelet Count 353 k/uL (150-450); RBC 4.25 m/uL (3.80-5.40); RDW 13.8 % (11.5-15.5); WBC 10.1 k/uL (3.8-10.6)
[2021-03-03 19:24] LABS: Appearance,Urine Clear (Clear); Bacteria,Urine Rare /hpf; Bilirubin,Urine Negative (Negative); Blood,Urine Negative (Negative); Color,Urine Yellow; Glucose,Urine (UA) Negative (Negative); Ketones,Urine Trace (Negative); Leukocyte Esterase,Urine Trace (Negative); Mucus,Urine Rare /hpf; Nitrite,Urine Negative (Negative); PH, Urine 5.5 (5.0-8.0); Protein,Urine Negative (Negative); RBC,Urine 1 /hpf (0-5); Specific Gravity,Urine 1.024 (1.001-1.035); Squamous Epithelial Cell,Urine 1 /hpf (0-4); Urobilinogen,Urine <2.0 mg/dL (<2.0); WBC,Urine 3 /hpf (0-5)
[2021-03-03 19:35] LABS: ALT 11 U/L (4-34); AST 23 U/L (14-36); African American GFR (CKD) >90 (>60 ml/min/1.73 sqM); Albumin 3.7 g/dL (3.5-5.0); Alkaline Phosphatase 59 U/L (38-126); Anion Gap 11 mmol/L; Blood Urea Nitrogen 9 mg/dL (7-17); Calcium 9.1 mg/dL (8.4-10.2); Carbon Dioxide 21 mmol/L (22-30); Chloride 103 mmol/L (98-107); Glucose 114 mg/dL (74-99); Non-African American GFR(CKD) >90 (>60 ml/min/1.73 sqM); Potassium 3.7 mmol/L (3.5-5.1); Sodium 135 mmol/L (137-145); Total Bilirubin <0.1 mg/dL (0.2-1.3); Total Protein 6.6 g/dL (6.3-8.2)
--- NOTE | 2021-03-03 20:19 | US ---
EXAMINATION TYPE: Transabdominal DATE OF EXAM: 03/03/2021 7:47 PM COMPARISON: NONE for this . Prior US. CLINICAL HISTORY: pain/cramping. Pain. Hx 1 . . EXAM PERFORMED: Transabdominal (TA) OB ultrasound. EXAM MEASUREMENTS: GESTATIONAL AGE / DATING Physician Established: (13 weeks/6 days) EDC: 09/02/2021 Dates by LMP: (13 weeks/6 days) EDC: 09/02/2021 Dates by First Scan: This is first scan Dates by Current Scan for: (14 weeks/0 days) EDC: 09/01/2021 MATERNAL ANATOMY Uterus: 12.2 x 11.4 x 8.0 cm. Anteverted. Right Ovary: 3.1 x 1.6 x 1.7 cm. Left Ovary: 2.5 x 1.8 x 1.1 cm. Post CDS / Adnexa: Normal. Presence of free fluid: None seen. Presence of corpus luteal cyst: Not seen. Presence of subchorionic bleed: Not seen. GESTATION / SURVEY CRL: 7.99 cm. (14 weeks/0 days) Yolk Sac (normal less than 6mm): Not seen. Heart Rate: 163 bpm Rhythm: Normal IUP: Viable IUP Nuchal Translucency 10-14wks (normal less than 3mm): Not well seen. Age Appropriate Anatomy Cord Insertion: Visualized, image of limited visibility. Limbs: Visualized Calvarium: Visualized Date of LMP: 11/26/2020 Beta HcG (if available): Not available. IMPRESSION: Single live intrauterine with heart rate of 163 bpm. Estimated gestational age 14 wee ks 0 days, with estimated due date of 09/01/2021.
--- NOTE | 2021-03-03 20:36 | ED ---
Nausea/Vomiting/Diarrhea HPI - General Chief complaint: Nausea/Vomiting/Diarrhea Stated complaint: 13 Weeks Preg, Possibly Dehydrated Time Seen by Provider: 03/03/21 18:43 Source: patient, RN notes reviewed Mode of arrival: ambulatory Limitations: no limitations - History of Present Illness Initial comments: A she is a 35-year-old female that presents to the emergency department complaining of nausea vomiting and some abdominal cramping. She notes that she is approximate 14 weeks . She notes that she has not had this happen in the past with previous pregnancies. She notes that she call her SECURITY STRATEGIST who told her to come emergency room for evaluation. She notes that she does have hyperemesis with all of her pregnancies and that's not abnormal for her. She denied any severe sharp shooting pain she notes that her lower abdominal crampin g with mild today and it was last night. She denied any chest pain shortness of breath headache diarrhea constipation fever fatigue chills. - Related Data Home Medications Medication Instructions Recorded Confirmed Pnv,Calcium 72/Iron/Folic Acid 1 tab PO HS 03/29/19 03/03/21 [ Plus Tablet] Aspirin EC [Ecotrin Low Dose] 81 mg PO HS 03/03/21 03/03/21 Ondansetron HCl [Zofran] 4 mg PO Q8H PRN 03/03/21 03/03/21 Phenadoz 25mg Suppository 12.5 mg RECTAL Q4H PRN 03/03/21 03/03/21 Allergies Allergy/AdvReac Type Severity Reaction Status Date / Time Penicillins Allergy Rash/Hives Verified 03/03/21 19:10 Review of Systems ROS Statement: Those systems with pertinent positive or pertinent negative responses have been documented in the HPI. ROS Other: All systems not noted in ROS Statement are negative. Past Medical History Past Medical History: No Reported History Additional Past Medical History / Comment(s): psoriasis and psoriatic arthritis History of Any Multi-Drug Resistant Organisms: None Reported Past Surgical History: Section Past Anesthesia/Blood Transfusion Reactions: No Reported Reaction Past Psychological History: No Psychological Hx Reported Smoking Status: Never smoker Past Alcohol Use History: None Reported Past Drug Use History: None Reported - Past Family History Father Family Medical History: Coronary Artery Disease (CAD), Thyroid Disorder General Exam Limitations: no limitations General appearance: alert, in no apparent distress Head exam: Present: atraumatic, normocephalic, normal inspection Eye exam: Present: normal appearance, PERRL, EOMI. Absent: scleral icterus, conjunctival injection, periorbital swelling Neck exam: Present: normal inspection Respiratory exam: Present: normal lung sounds bilaterally. Absent: respiratory distress, wheezes, rales, rhonchi, stridor Cardiovascular Exam: Present: regular rate, normal rhythm, normal heart sounds. Absent: systolic murmur, diastolic murmur, rubs, gallop, clicks GI/Abdominal exam: Present: soft, normal bowel sounds. Absent: distended, tenderness, guarding, rebound, rigid Extremities exam: Present: normal inspection, full ROM, normal capillary refill. Absent: tenderness, pedal edema, joint swelling, calf tenderness Neurological exam: Present: alert, oriented X3 Psychiatric exam: Present: normal affect, normal mood Skin exam: Present: warm, dry, intact, normal color. Absent: rash Course Vital Signs 03/03/21 03/03/21 03/03/21 17:31 19:17 20:05 Temperature 99.5 F Pulse Rate 97 84 92 Respiratory 18 18 18 Rate Blood Pressure 110/69 116/74 104/58 O2 Sat by Pulse 98 98 98 Oximetry Medical Decision Making - Medical Decision Making 35-year-old female complaining of nausea vomiting abdominal cramping and 14 weeks . Labs, 1 L normal saline, 4 g of Zofran, ultrasound ordered. Labs unremarkable. ultrasound shows a single intrauterine viable at 14 weeks showed days. Case discussed with Dr. Brown, patient can discharge home. - Lab Data Result diagrams: 03/03/21 19:13 03/03/21 19:13 Lab Results 03/03/21 03/03/21 03/03/21 Range/Units 19:13 19:13 19:13 WBC 10.1 (3.8-10.6) k/uL RBC 4.25 (3.80-5.40) m/uL Hgb 13.6 (11.4-16.0) gm/dL Hct 40.0 (34.0-46.0) % MCV 94.1 (80.0-100.0) fL MCH 32.0 (25.0-35.0) pg MCHC 34.0 (31.0-37.0) g/dL RDW 13.8 (11.5-15.5) % Plt Count 353 (150-450) k/uL MPV 8.1 Neutrophils % 70 % Lymphocytes % 22 % Monocytes % 5 % Eosinophils % 2 % Basophils % 0 % Neutrophils # 7.0 (1.3-7.7) k/uL Lymphocytes # 2.2 (1.0-4.8) k/uL Monocytes # 0.5 (0-1.0) k/uL Eosinophils # 0.2 (0-0.7) k/uL Basophils # 0.0 (0-0.2) k/uL Sodium 135 L (137-145) mmol/L Potassium 3.7 (3.5-5.1) mmol/L Chloride 103 (98-107) mmol/L Carbon Dioxide 21 L (22-30) mmol/L Anion Gap 11 mmol/L BUN 9 (7-17) mg/dL Creatinine 0.53 (0.52-1.04) mg/dL Est GFR (CKD-EPI)AfAm >90 (>60 ml/min/1.73 sqM) Est GFR (CKD-EPI)NonAf >90 (>60 ml/min/1.73 sqM) Glucose 114 H (74-99) mg/dL Calcium 9.1 (8.4-10.2) mg/dL Total Bilirubin <0.1 L (0.2-1.3) mg/dL AST 23 (14-36) U/L ALT 11 (4-34) U/L Alkaline Phosphatase 59 (38-126) U/L Total Protein 6.6 (6.3-8.2) g/dL Albumin 3.7 (3.5-5.0) g/dL Urine Color Yellow Urine Appearance Clear (Clear) Urine pH 5.5 (5.0-8.0) Ur Specific [place] 1.024 (1.001-1.035) Urine Protein Negative (Negative) Urine Glucose (UA) Negative (Negative) Urine Ketones Trace H (Negative) Urine Blood Negative (Negative) Urine Nitrite Negative (Negative) Urine Bilirubin Negative (Negative) Urine Urobilinogen <2.0 (<2.0) mg/dL Ur Leukocyte Esterase Trace H (Negative) Urine RBC 1 (0-5) /hpf Urine WBC 3 (0-5) /hpf Ur Squamous Epith Cells 1 (0-4) /hpf Urine Bacteria Rare H (None) /hpf Urine Mucus Rare H (None) /hpf - Radiology Data Radiology results: report reviewed, image reviewed ultrasound: Single live intrauterine with heart rate of 163 bpm estimated gestational age 14 weeks 0 days with estimated due date 09/01/2021. Disposition Clinical Impression: Hyperemesis gravidarum, Abdominal cramping Disposition: HOME SELF-CARE Condition: Stable Instructions (If sedation given, give patient instructions): Acute Nausea and Vomiting (ED) Additional Instructions: Please return to the Emergency Department if symptoms worsen or any other concerns. Follow-up primary care and SECURITY STRATEGIST as planned. Take it easy for several days. Is patient prescribed a controlled substance at d/c from ED?: No Referrals: None,Stated [Primary Care Provider] - 1-2 days Time of Disposition: 20:36
[2021-03-03 21:45] VITALS: BP 113/65; PULSE 85; TEMP 97.8
== END 2021-03-03 21:40 | disposition home or self-care (01) ==
LOC: EC 17:18
DX: O21.0 Mild hyperemesis gravidarum (principal); O26.892 Other specified pregnancy related conditions, second trimester; Z3A.14 14 weeks gestation of pregnancy; Z79.82 Long term (current) use of aspirin; Z88.0 Allergy status to penicillin
CPT/HCPCS: 99284; 96374; 96361; 36415; 80053; 85025; 81001; 76801; J2405

== ENCOUNTER 2021-07-31 16:04 | Outpatient (CLI) | payer BC ==
[2021-07-31 16:49] VITALS: BP 114/66; PULSE 88; RESP 16; TEMP 98.4
--- NOTE | 2021-10-20 21:45 | P.MSEPDOC ---
Presenting Problems - Arrival Data Date of Arrival on Unit: 07/31/21 Time of Arrival on Unit: 16:25 Mode of Transport: Ambulatory - Complaint OB-Reason for Admission/Chief Complaint: Decreased Movement Medical History - Information : 2 Para: 1 Term: 1 : 0 Abortions: Spontaneous or Elective: 0 Number of Living Children: 1 - Gestational Age Gestational Age by MABEL (wks/days): 35 Weeks and 2 Days Review of Systems - Review of Systems Constitutional: No problems Breast: No problems ENT: No problems Cardiovascular: No problems Respiratory: No problems Gastrointestinal: No problems Genitourinary: No problems Musculoskeletal: No problems Neurological: No problems Skin: No problems Vital Signs - Temperature Temperature: 98.4 F Temperature Source: Oral - Pulse Right Brachial Pulse Rate: 88 Pulse Assessment Method: Automatic Cuff - Respirations Respiratory Rate: 16 Oxygen Delivery Method: Room Air - Blood Pressure Right Arm Blood Pressure: 114/66 Blood Pressure Mean: 82 Blood Pressure Source: Automatic Cuff Medical Screen Scoring - Assessment - Baby A Baseline FHR: 140 Heart Rate - NICHD Category: Category I (Normal) NST: Reactive Physician Notification - Physician Notified Physician Notified Date: 07/31/21 Physician Notified Time: 16:43 Physician: Juana Smith New Order Received: Yes - Notification Comment Comment: reported fm and reactive nst, pt can be discharged home, dr in department Maternal Triage Index - Maternal Triage Index Presenting for scheduled procedure w/no complaint: No - Stat/Priority 1 Stat Priority 1: Yes Provider Notified: Juana Smith Provider Notified Time: 16:43 Criteria Met for Priority 1: decreased fm - Urgent/Priority 2 Urgent Priority 2: No - Prompt/Priority 3 Prompt Priority 3: No - Non-Urgent/Priority 4 Non-Urgent Priority 4: No Disposition - Disposition OB Disposition: Discharge to home Discharge Date: 07/31/21 Discharge Time: 17:00 I agree with the RN Medical Screening Exam: Yes Case reviewed; plan agreed upon as documented in EMR&OBIX.: Yes Diagnosis: DECREASED MOVEMENTS, UNSP TRIMESTER, UNSP
== END 2021-07-31 17:02 | disposition home or self-care (01) ==
LOC: FBPOP 16:04
PROVIDERS: ATTEND Obstetrics & Gynecology Obstetrics
DX: O36.8130 Decreased fetal movements, third trimester, not applicable or unspecified (principal); O09.523 Supervision of elderly multigravida, third trimester; Z3A.35 35 weeks gestation of pregnancy; Z88.0 Allergy status to penicillin
CPT/HCPCS: 59025; 99213

== ENCOUNTER 2021-08-30 05:50 | Inpatient (IN) | payer BC ==
[2021-08-26 10:47] VITALS: BMI 27.1
[2021-08-30] MEDS ORDERED: OXYTOCIN 10 UNIT/ML 1 ML VIAL IM PRN (06:08)
[2021-08-30] MEDS ORDERED: LIDOCAINE 1% (PF) 10 MG/ML (30 ML SDV) SQ PRN (06:08)
[2021-08-30] MEDS ORDERED: TERBUTALINE 1 MG/ML VIAL SQ PRN (06:08)
[2021-08-30] MEDS ORDERED: METHYLERGONOVINE 0.2 MG/ML 1 ML AMP IM PRN (06:08)
[2021-08-30] MEDS ORDERED: CARBOPROST TROMETHAMINE 250 MCG/ML 1 ML AMP IM PRN (06:08)
[2021-08-30] MEDS ORDERED: OXYTOCIN 30 UNITS/500 ML NS 30 UNIT in SALINE 1 500ML.BAG IV SCH ×2 (06:15→09:00)
[2021-08-30 06:38] LABS: Basophils % (A) 0 %; Eosinophils # (A) 0.2 k/uL (0-0.7); Eosinophils % (A) 2 %; HGB 10.9 gm/dL (11.4-16.0); Hypochromasia Slight; Lymphocytes # (A) 2.2 k/uL (1.0-4.8); Lymphocytes % (A) 21 %; MCH 30.3 pg (25.0-35.0); MCHC 33.1 g/dL (31.0-37.0); MCV 91.7 fL (80.0-100.0); Mean Platelet Volume 9.8; Monocytes # (A) 0.6 k/uL (0-1.0); Monocytes % (A) 5 %; Neutrophils # (A) 7.3 k/uL (1.3-7.7); Neutrophils % (A) 70 %; Platelet Count 229 k/uL (150-450); RBC 3.59 m/uL (3.80-5.40); RDW 14.5 % (11.5-15.5); WBC 10.5 k/uL (3.8-10.6)
[2021-08-30] MEDS: LACTATED RINGERS 1,000 ML IV SCH ×4 (06:40→23:22)
[2021-08-30] MEDS ORDERED: CITRIC ACID-SODIUM CITRATE 15 ML CUP PO ONE (07:20)
--- NOTE | 2021-08-30 08:02 | P.HPOB ---
History of Present Illness H&P Date: 08/30/21 Chief Complaint: Term , previous This is a 36-year-old 2 para 1001 woman with an estimated due date of 08/30/2021 based on LMP consistent with first trimester ultrasound. She is admitted for planned repeat low transverse section and bilateral tubal ligation. She had her desire no further pregnancies. Her has been relatively unremarkable. She is AMA but declines additional testing. Obstetric history is significant for in 2019 at 39 weeks delivered by section secondary to nonreassuring status in labor. Laboratory data: Blood type O positive, antibody screen negative, rubella immune, VDRL nonreactive, hep Itzel surface antigen negative, HIV negative, gonorrhea and clinic cultures negative, group B strep negative. Review of Systems All systems: negative Past Medical History Past Medical History: GERD/Reflux, Skin Disorder Additional Past Medical History / Comment(s): psoriasis and psoriatic arthritis. Sl edema BLE, hands History of Any Multi-Drug Resistant Organisms: None Reported Past Surgical History: Section, Ear Surgery Additional Past Surgical History / Comment(s): Lt Ear cartilage reconstruction Past Anesthesia/Blood Transfusion Reactions: No Reported Reaction Past Psychological History: No Psychological Hx Reported Smoking Status: Never smoker Past Alcohol Use History: None Reported Past Drug Use History: None Reported - Past Family History Father Family Medical History: Coronary Artery Disease (CAD), Thyroid Disorder Medications and Allergies Home Medications Medication Instructions Recorded Confirmed Type Pnv,Calcium 72/Iron/Folic Acid 4 tab PO HS 03/29/19 08/30/21 History [ Plus Tablet] Calcium Carbonate [Tums] 500 - 1,000 mg PO QID PRN 08/26/21 08/30/21 History Allergies Allergy/AdvReac Type Severity Reaction Status Date / Time Penicillins Allergy Rash/Hives Verified 08/30/21 06:07 Exam Vital Signs Temp Pulse Resp BP 08/30/21 06:06 97.6 F 90 16 125/72 Intake and Output 08/29/21 08/30/21 08/30/21 22:59 06:59 14:59 Other: Weight 73.936 kg This is a comfortable appearing female who is visibly gravid. HEENT exam unremarkable. Her breathing is unlabored and her heart is a regular rate and rhythm. The abdomen is gravid and she does have some intermittent palpable contractions. status currently category 1. Cervical exam is deferred. Lower extremities with the trace edema. Results Result Diagrams: 08/30/21 06:30 Abnormal Lab Results - Last 24 Hours (Table) 08/30/21 Range/Units 06:30 RBC 3.59 L (3.80-5.40) m/uL Hgb 10.9 L (11.4-16.0) gm/dL Hct 33.0 L (34.0-46.0) % Assessment and Plan (1) Term Current Visit: No Status: Acute Code(s): Z34.90 - ENCNTR FOR SUPRVSN OF NORMAL , UNSP, UNSP TRIMESTER SNOMED Code(s): 97598893 (2) Family planning Current Visit: Yes Status: Acute Code(s): Z30.09 - ENCOUNTER FOR OT GENERAL CNSL AND ADVICE ON CONTRACEPTION SNOMED Code(s): 921294058 (3) History of Current Visit: Yes Status: Acute Code(s): Z98.891 - HISTORY OF UTERINE SCAR FROM PREVIOUS SURGERY SNOMED Code(s): 764927890 (4) Advanced maternal age (AMA) in Current Visit: Yes Status: Acute Code(s): TXR9500 - SNOMED Code(s): 020698667 Plan: This is a 36-year-old 2 para 1001 woman who is admitted at 40 weeks gestation of for planned repeat low transverse section and bilateral tubal ligation. Risks benefits and alternatives to repeat have been reviewed with the patient in detail in the office setting. Risks include but are not limited to bleeding, transfusion, infection, damage to bowel, bladder, ureters and/or other pelvic structures and or the infant. Risks and benefits and alternatives to bilateral tubal ligation have also been reviewed in the desire permanent sterility in the form of tubal ligation. She does understand small risk of failure as well as ectopic . All consents have been signed. status is currently reassuring by external monitoring.
[2021-08-30] MEDS ORDERED: METOCLOPRAMIDE 5 MG/ML 2 ML VIAL IVP PRN (09:00)
[2021-08-30] MEDS ORDERED: NALOXONE 0.4 MG/ML 1 ML VIAL IV PRN ×2 (09:00→10:44)
[2021-08-30] MEDS ORDERED: SIMETHICONE 80 MG CHEWABLE PO PRN (09:00)
[2021-08-30] MEDS ORDERED: diphenhydrAMINE 50 MG/ML 1 ML VIAL IVP PRN ×2 (09:00)
[2021-08-30] MEDS ORDERED: HYDROmorphone 1 MG/ML 1 ML SYRINGE IVP PRN (09:00)
[2021-08-30] MEDS ORDERED: ZOLPIDEM 5 MG TAB PO PRN (09:00)
[2021-08-30] MEDS ORDERED: ONDANSETRON 4 MG/2 ML VIAL IVP PRN (09:00)
[2021-08-30] MEDS ORDERED: diphenhydrAMINE 50 MG CAP PO PRN (09:00)
[2021-08-30] MEDS ORDERED: diphenhydrAMINE 25 MG CAP PO PRN (09:00)
--- NOTE | 2021-08-30 09:00 | P.OP ---
Date of Procedure: 08/30/21 Preoperative Diagnosis: Intrauterine at 40 weeks gestation History of previous low transverse section Desires permanent sterility Advanced maternal age Postoperative Diagnosis: Same Procedure(s) Performed: Repeat low transverse section and bilateral tubal ligation with Filshie clips Anesthesia: spinal Surgeon: Corin Salmon Telehealth Coordinator #1: Ortiz Sotomayor Estimated Blood Loss (ml): 360 IV fluids (ml): 1,000 Urine output (ml): 400 Pathology: none sent Condition: stable Disposition: floor Indications for Procedure: History of previous primary low transverse section, due to declines trial of labor. Desires permanent sterility. Operative Findings: Male infant in the direct occiput anterior position with Apgars of 8 at 1 minute and 9 at 5 minutes weighing 8 lbs. 0 oz., 3630 g. Normal-appearing bilateral fallopian tubes and ovaries. Heart shaped uterus Description of Procedure: After the patient was met preoperatively and all questions were answered, she was taken to the operating room where spinal anesthetic was administered without incident. She was then positioned, prepped and draped in the dorsal supine position with a leftward tilt. Martins catheter was placed. After anesthetic was confirmed adequate, a low transverse skin incision was made following the pre- existing scar. This was carried down to the underlying fascia both sharply and with the electrocautery. The fascia was then incised in the midline and extended bilaterally with the Potter scissors. The superior aspect of the fascial incision was elevated and the underlying rectus muscles dissected off sharply and with the electrocautery. The inferior aspect of the fascial incision was also elevated and the underlying rectus muscles dissected off sharply. The muscles were adherent in the midline. These were bluntly and the peritoneum was tented up with hemostats. The peritoneum was entered sharply with the Metzenbaum scissors. The peritoneal incision was extended inferiorly and superiorly with good visualization of the bladder. The bladder blade was placed. The vesicouterine peritoneum was identified, tented up and entered sharply, the bladder flap was created both sharply and digitally. A low transverse uterine incision was then made sharply and carried down to the underlying amniotic membranes. Membranes were ruptured and clear fluid was noted. The uterine incision was extended bilaterally bluntly. The 's head was delivered from the incision without difficulty. The nose and mouth were bulb suctioned. The rest of the infant was delivered onto the field without difficulty. And cut and the infant was taken to the warmer. An intact, three-vessel cord placenta was then manually removed and the uterus was exteriorized. The uterus was cleared of all clot and debris. The uterine incision was delineated with Smith clamps. The uterine incision was then closed in a running locked fashion with 0 Vicryl suture. Additional [id number] sutures were placed where necessary along the incision for hemostasis. The right and left fallopian tubes were positively identified and carried out to the fimbriated ends. Filshie clip clips were then applied in the mid ampullary portion of the tubes completely transecting each tube. The uterus was then returned to the abdomen and the gutters were cleared of all clot and debris. The uterine incision was reinspected and Bovie electrocautery was utilized were necessary for hemostasis. The fascial edges, peritoneal edges and rectus muscles were inspected and Bovie electrocautery utilized were necessary for hemostasis. The fascia was then closed in a running fashion with 0 Vicryl suture. The subcuticular tissue was copiously suction irrigated and Bovie electrocautery utilized were necessary for hemostasis. 3-0 Vicryl suture was utilized to reapproximate the subcuticular tissue. The skin was then closed in a subcutaneous fashion with 4-0 Vicryl suture. All counts reported to me as correct by the operating room staff at the end of the procedure. The patient received antibiotics preoperatively and Pitocin following cord clamp. Mother and were both transported from the room in stable condition.
[2021-08-30] MEDS ORDERED: MORPHINE SULFATE 2 MG/ML SYRINGE IVP PRN (10:44)
[2021-08-30] MEDS: ACETAMINOPHEN TAB 500 MG TAB PO SCH ×3 (12:11→23:25)
[2021-08-30] MEDS: IBUPROFEN 600 MG TAB PO SCH ×2 (20:04→22:00)
[2021-08-30] MEDS: IBUPROFEN IV 800 MG in SODIUM CHLORIDE 0.9% 250 ML IV SCH (20:07)
[2021-08-30] MEDS: SENNOSIDES-DOCUSATE SODIUM 1 EACH TAB PO SCH (20:07)
[2021-08-31] MEDS: IBUPROFEN 600 MG TAB PO SCH ×4 (02:32→23:50)
[2021-08-31] MEDS: IBUPROFEN IV 800 MG in SODIUM CHLORIDE 0.9% 250 ML IV SCH (03:12)
[2021-08-31] MEDS: LACTATED RINGERS 1,000 ML IV SCH (03:12)
[2021-08-31] MEDS: ACETAMINOPHEN TAB 500 MG TAB PO SCH ×3 (04:53→19:54)
[2021-08-31 07:22] LABS: Basophils % (A) 0 %; Eosinophils # (A) 0.1 k/uL (0-0.7); Eosinophils % (A) 1 %; HCT 32.6 % (34.0-46.0); HGB 10.6 gm/dL (11.4-16.0); Hypochromasia Slight; Lymphocytes # (A) 1.6 k/uL (1.0-4.8); Lymphocytes % (A) 16 %; MCH 30.3 pg (25.0-35.0); MCHC 32.5 g/dL (31.0-37.0); MCV 93.2 fL (80.0-100.0); Mean Platelet Volume 9.3; Monocytes # (A) 0.3 k/uL (0-1.0); Monocytes % (A) 3 %; Neutrophils # (A) 8.1 k/uL (1.3-7.7); Neutrophils % (A) 79 %; Platelet Count 227 k/uL (150-450); RDW 14.6 % (11.5-15.5); WBC 10.2 k/uL (3.8-10.6)
--- NOTE | 2021-08-31 07:26 | P.PN ---
Progress Note - Text Progress Note Date: 08/31/21 (776) Anesthesia Postop day 1 Subjective: Status Post section with Duramorph. Patient seen and examined. Doing well without complaint. VAS 1 out of 10. No nausea vomiting or pruritus. Afebrile. Gross lower extremity strength intact. Without apparent anesthetic complications. Objective: Vital signs reviewed Heart: Regular Rate Lungs: Good chest excursion Abdomen: Appears nondistended Assessment: Status post with Duramorph postop day 1 Plan: Continue current care with your medical management. Anticipated change in pain needs around 8 AM today with 2 time yesterday. Instructions given. All questions answered. This note was dictated using [employer] software. Please be advised there is a potential for misspellings or errors in dockmaster.
[2021-08-31] MEDS: SENNOSIDES-DOCUSATE SODIUM 1 EACH TAB PO SCH ×2 (08:42→19:56)
--- NOTE | 2021-08-31 12:46 | P.PNOBGPC ---
Subjective - Subjective Principal diagnosis: Postop day 1 Interval history: Complaining of rash at the site of the surgical drape and IV dressing Patient reports: Reports appetite normal, Reports voiding normally, Reports pain well controlled, Reports ambulating normally, Denies dizzy ambulation, Denies nauseated Callands: doing well, nursing well Objective - Vital Signs Latest vital signs: Vital Signs Temp Pulse Resp BP Pulse Ox 08/31/21 08:36 85 14 104/65 08/31/21 07:42 97.4 F L 84 14 95/55 98 08/31/21 04:00 98.3 F 76 16 105/65 97 08/31/21 00:00 98.2 F 83 16 119/68 96 08/30/21 20:00 98.2 F 79 16 121/72 98 08/30/21 16:38 97.6 F 74 16 120/74 98 08/30/21 16:36 97.6 F 67 16 120/74 98 Intake and Output 08/30/21 08/31/21 08/31/21 22:59 06:59 14:59 Output Total 1300 600 Balance -1300 -600 Output: Urine 1300 600 Uretheral (Martins) 400 Other: # Voids 0 1 2 - Exam Extremities: Present: normal. Absent: edema Abdomen: Present: soft. Absent: normal appearance (Maculopapular rash in the distribution of the surgical drape. No ulcerations or blistering.), distention Incision: Present: normal, dry, intact. Absent: erythematous Uterus: Present: normal, firm, tenderness - Labs Labs: Abnormal Lab Results - Last 24 Hours (Table) 08/31/21 Range/Units 06:42 RBC 3.50 L (3.80-5.40) m/uL Hgb 10.6 L (11.4-16.0) gm/dL Hct 32.6 L (34.0-46.0) % Neutrophils # 8.1 H (1.3-7.7) k/uL Assessment and Plan (1) Term Current Visit: No Status: Acute Code(s): Z34.90 - ENCNTR FOR SUPRVSN OF NORMAL , UNSP, UNSP TRIMESTER SNOMED Code(s): 54999137 (2) Family planning Current Visit: Yes Status: Acute Code(s): Z30.09 - ENCOUNTER FOR OTH GENERAL CNSL AND ADVICE ON CONTRACEPTION SNOMED Code(s): 695464908 (3) History of Current Visit: Yes Status: Acute Code(s): Z98.891 - HISTORY OF UTERINE SCAR FROM PREVIOUS SURGERY SNOMED Code(s): 992885520 (4) Advanced maternal age (AMA) in Current Visit: Yes Status: Acute Code(s): GPH9427 - SNOMED Code(s): 664128920 Plan: Postop day 1 status post repeat low transverse section with bilateral tubal ligation. Contact dermatitis from the surgical dressing however is possible she is having a reaction to the antibiotics given at surgical time. All dressings now removed with the exception of Tegaderm at her IV site. IV and that dressing will be removed now. Benadryl as needed for discomfort. Otherwise routine care. Probable discharge home tomorrow.
[2021-09-01] MEDS: ACETAMINOPHEN TAB 500 MG TAB PO SCH ×2 (00:33→08:49)
[2021-09-01] MEDS: IBUPROFEN 600 MG TAB PO SCH ×2 (04:20→11:26)
--- NOTE | 2021-09-01 08:09 | P.DS ---
Providers Date of admission: 08/30/21 05:50 Expected date of discharge: 09/01/21 Attending physician: Corin Salmon Primary care physician: Stated None - Discharge Diagnosis(es) (1) Term Current Visit: No Status: Acute (2) Family planning Current Visit: Yes Status: Acute (3) History of Current Visit: Yes Status: Acute (4) Advanced maternal age (AMA) in Current Visit: Yes Status: Acute Hospital Course: This is a 36-year-old 2 now para 2 woman who is admitted at term for planned repeat low transverse section with bilateral tubal ligation. Following admission she went to the operating room where she underwent an unremarkable repeat with bilateral tubal ligation using Filshie clips. See the operative report for details. Her postoperative course was entirely unremarkable. By postoperative day #1 she did have a skin reaction likely secondary to the surgical drapes and adhesive. This was managed with Benadryl and did resolve spontaneously. She was able to ambulate and void with a Martins catheter out. Her pain was well-controlled with oral pain medications. Her postoperative day #1 labs were stable from admission. The postoperative day #2 she continued to do well. Her incision appeared intact and well-healing. She had scant lochia. She was breast-feeding successfully. Her vital signs were stable she was therefore discharged home with routine instructions for postoperative care and follow-up. Procedures: Repeat low transverse section with bilateral tubal ligation Patient Condition at Discharge: Good Plan - Discharge Summary Discharge Rx Participant: Yes New Discharge Prescriptions: New Ibuprofen [Motrin] 600 mg PO Q6H tab Sennosides-Docusate Sodium [Senokot-S] 2 each PO BID@0800,2000 tab Acetaminophen Tab [Tylenol] 1,000 mg PO Q6H tab Continue Pnv,Calcium 72/Iron/Folic Acid [ Plus Tablet] 4 tab PO HS No Action Calcium Carbonate [Tums] 500 - 1,000 mg PO QID PRN PRN Reason: GERD Discharge Medication List Pnv,Calcium 72/Iron/Folic Acid [ Plus Tablet] 4 tab PO HS 03/29/19 [History] Calcium Carbonate [Tums] 500 - 1,000 mg PO QID PRN 08/26/21 [History] Acetaminophen Tab [Tylenol] 1,000 mg PO Q6H tab 09/01/21 [Rx] Ibuprofen [Motrin] 600 mg PO Q6H tab 09/01/21 [Rx] Sennosides-Docusate Sodium [Senokot-S] 2 each PO BID@0800,2000 tab 09/01/21 [Rx] Follow up Appointment(s)/Referral(s): Corin Salmon MD [STAFF PHYSICIAN] - 2 Weeks Activity/Diet/Wound Care/Special Instructions: Follow-up in 2 weeks after surgery in the office. Call the office with any concerning signs or symptoms including fever greater than 101, severe abdominal pain, heavy vaginal bleeding, signs of wound infection, increased swelling or redness of the lower extremities, signs of depression. No driving for 2 weeks after surgery. No heavy lifting or vigorous activity until reevaluated in the office. No intercourse for 6 weeks after delivery. Discharge Disposition: HOME SELF-CARE
[2021-09-01 08:41] VITALS: BP 105/70; PULSE 86; RESP 20; TEMP 98.1
[2021-09-01] MEDS: SENNOSIDES-DOCUSATE SODIUM 1 EACH TAB PO SCH (08:50)
== END 2021-09-01 10:55 | disposition home or self-care (01) | DRG 785 ==
LOC: 4FBP 05:50
PROVIDERS: ADMIT Obstetrics & Gynecology; ATTEND Obstetrics & Gynecology
PROC: 0UL70CZ Occlusion of Bilateral Fallopian Tubes with Extraluminal Device, Open Approach (ICD-10-PCS; 2021-08-30)
PROC: 10D00Z1 Extraction of Products of Conception, Low, Open Approach (ICD-10-PCS; principal; 2021-08-30 08:00)
DX: O34.211 Maternal care for low transverse scar from previous cesarean delivery (principal); L40.50 Arthropathic psoriasis, unspecified; O99.824 Streptococcus B carrier state complicating childbirth; O99.72 Diseases of the skin and subcutaneous tissue complicating childbirth; L23.1 Allergic contact dermatitis due to adhesives; O99.73 Diseases of the skin and subcutaneous tissue complicating the puerperium; K21.9 Gastro-esophageal reflux disease without esophagitis; Z30.2 Encounter for sterilization; Z37.0 Single live birth; Z3A.40 40 weeks gestation of pregnancy; Z82.49 Family history of ischemic heart disease and other diseases of the circulatory system; Z88.0 Allergy status to penicillin
CPT/HCPCS: 85025; 86850; 86900; 86901

== ENCOUNTER → 2024-06-04 | Outpatient (CLI) | payer BC ==
--- NOTE | 2024-06-05 17:10 | MM ---
Reason for Exam: Screening (asymptomatic). Baseline mammogram. Patient History: Menarche at age 12. First Full-Term at age 34. Late child-bearing (after 30). Premenopausal. Patient has history of breast feeding. Currently using Hormonal Contraceptives, starting at age 39. Currently . Last menstrual period: 06/01/2024 Risk Values: Kim 5 year model risk: 0.8%. NCI Lifetime model risk: 12.4%. Prior Study Comparison: Patient's first Mammogram. Tissue Density: The breasts are extremely dense, which lowers the sensitivity of mammography. Findings: Analyzed By CAD. Typically benign, diffuse bilateral punctate calcifications. No suspicious microcalcifications, significant masses, or other discrete abnormality is seen. There is a mole along the inferior aspect of the posterior left breast on the cc view. Overall Assessment: Benign, BI-RAD 2 Management: Screening Mammogram of both breasts in 1 year. Patient should continue monthly self-breast exams. A clinical breast exam by your physician is recommended on an annual basis. This exam should not preclude additional follow-up of suspicious palpable abnormalities. Note on Kim scores and lifetime risk: 1. A Kim score greater than 3% is considered moderate risk. If this is the case, consider specialist referral to assess eligibility for a risk reducing agent. 2. If overall lifetime risk for the development of breast cancer is 20% or higher, the patient may qualify for future screening with alternating mammogram and breast MRI. [facility], , 06/05/2024 5:07 PM. Electronically signed and approved by: Ale De La Cruz M.D. Radiologist
== END | disposition home or self-care (01) ==
LOC: RADMAMWWP 11:20
PROVIDERS: ATTEND Obstetrics & Gynecology
DX: Z12.31 Encounter for screening mammogram for malignant neoplasm of breast (principal); R92.343 Mammographic extreme density, bilateral breasts
CPT/HCPCS: 77063; 77067